=== PATIENT | female | born 1980 | race Caucasian/White ===

== ENCOUNTER 2017-02-14 12:27 | Emergency (ER) | payer SELFPAY | END 2017-02-14 13:45 | disposition home or self-care (01) | LOC: ER1 12:27 | DX: S60.222A Contusion of left hand, initial encounter (principal); W20.8XXA Other cause of strike by thrown, projected or falling object, initial encounter; Y93.89 Activity, other specified; Y92.69 Other specified industrial and construction area as the place of occurrence of the external cause; Y99.0 Civilian activity done for income or pay | CPT/HCPCS: 73130; 99283 ==

== ENCOUNTER 2021-09-06 15:00 | Emergency (ER) | payer OTHER ==
[~2021-09-06 15:00] MED LIST: CLARITIN10 MG PO; DELSYM30 MG/5 ML PO; FLONASE 0.05% N16 GM; NITROSTAT0.4 MG SL; TENORMIN 50 MG50 MG PO; ZOFRAN ODT 4 MG4 MG GT
[2021-09-06 15:59] LABS: HEMOGLOBIN 8.8 gm/dl (12.3-15.3); RED BLOOD COUNT 3.82 M/UL (4.00-5.10); WHITE BLOOD COUNT 15.2 K/UL (4.5-11.0)
[2021-09-06 16:31] LABS: BUN/CREATININE RATIO 12 (0-10)
[2021-09-06] MEDS ORDERED: K-TAB ER20 MEQ PO (19:09)
[2021-09-06] MEDS ORDERED: IBUPROFEN800 MG PO (19:09)
[2021-09-06] MEDS ORDERED: CYCLOBENZAPRINE10 MG PO (19:09)
[2021-09-06] MEDS ORDERED: FERROUS GLUCON324 M1 PO (19:10)
== END 2021-09-06 19:30 | disposition home or self-care (01) ==
LOC: ER1 15:00
PROVIDERS: Physician Assistant
DX: S20.213A Contusion of bilateral front wall of thorax, initial encounter (principal); I10 Essential (primary) hypertension; E86.0 Dehydration; E87.6 Hypokalemia; D50.9 Iron deficiency anemia, unspecified; Z20.822 Contact with and (suspected) exposure to COVID-19; Z90.49 Acquired absence of other specified parts of digestive tract; Z88.0 Allergy status to penicillin; W11.XXXA Fall on and from ladder, initial encounter
CPT/HCPCS: 71045; 80053; 82550; 82553; 83874; 83880; 84484; 85025; 85379; 93005; 96374; 96375; 99285; J1885; J3360; J7030; Q9967; U0002